=== PATIENT | female | born 1990 | race Caucasian/White ===

== ENCOUNTER 2016-12-29 11:12 | Inpatient (IN) | payer OTHER ==
[2016-12-29] MEDS ORDERED: SODIUM CHLORIDE 0.9% 1,000 ML IV STA (12:27)
--- NOTE | 2016-12-29 12:32 | ED ---
GI Bleed HPI - General Source: patient, RN notes reviewed Mode of arrival: ambulatory Limitations: no limitations <Edmund Pimentel - Last Filed: 12/29/16 15:13> <Lucian Mann - Last Filed: 12/29/16 15:15> - General Chief complaint: GI Bleed Stated complaint: POSS GI BLEED Time Seen by Provider: 12/29/16 12:15 - History of Present Illness Initial comments: 26 year-old female patient presents emergency department today for complaints of rectal bleeding. Patient states that she began having passage of dark red blood with her stool last evening. Patient states she has now had multiple episodes of bright red blood per rectum. Patient denies any history of GI bleed. Patient is complaining of upper abdominal pain. Patient denies any nausea or vomiting. She has had diarrhea since Sunday, multiple episodes per day. Patient denies any shortness of breath, dizziness, weakness, chest pain, back pain. Patient denies any fever or chills. Denies any urinary frequency, urgency, dysuria, or hematuria. Denies any chance of . She does have a lactose ALLERGY and states she generally gets GI upset and diarrhea from this. (Edmund Pimentel) - Related Data Home Medications Medication Instructions Recorded Confirmed Albuterol Inhaler [Ventolin Hfa 1 - 2 puff INHALATION RT-Q6H PRN 12/29/16 Inhaler] Montelukast [Singulair] 10 mg PO DAILY 12/29/16 12/29/16 Norgestimate-Ethinyl Estradiol 1 tab PO DAILY 12/29/16 12/29/16 [Tri-Sprintec Tablet] Allergies Allergy/AdvReac Type Severity Reaction Status Date / Time codeine AdvReac Nausea & Verified 12/29/16 12:11 Vomiting Review of Systems ROS Other: All systems not noted in ROS Statement are negative. <Edmund Pimentel - Last Filed: 12/29/16 15:13> ROS Other: All systems not noted in ROS Statement are negative. <Lucian Mann - Last Filed: 12/29/16 15:15> ROS Statement: Those systems with pertinent positive or pertinent negative responses have been documented in the HPI. Past Medical History Past Medical History: No Reported History History of Any Multi-Drug Resistant Organisms: None Reported Past Surgical History: No Surgical Hx Reported Past Psychological History: No Psychological Hx Reported Smoking Status: Never smoker Past Alcohol Use History: None Reported Past Drug Use History: None Reported <Edmund Pimentel - Last Filed: 12/29/16 15:13> General Exam Limitations: no limitations General appearance: alert, in no apparent distress Eye exam: Present: normal appearance, PERRL, EOMI. Absent: scleral icterus, conjunctival injection, periorbital swelling ENT exam: Present: normal exam, normal oropharynx, mucous membranes moist Neck exam: Present: normal inspection. Absent: tenderness, meningismus, lymphadenopathy Respiratory exam: Present: normal lung sounds bilaterally. Absent: respiratory distress, wheezes, rales, rhonchi, stridor Cardiovascular Exam: Present: regular rate, normal rhythm, normal heart sounds. Absent: systolic murmur, diastolic murmur, rubs, gallop, clicks GI/Abdominal exam: Present: soft, tenderness (Right upper quadrant), normal bowel sounds. Absent: distended, guarding, rebound, rigid Rectal exam: Present: normal inspection, normal rectal tone, heme (+) stool, bloody stool. Absent: hemorrhoids, mass, tenderness Extremities exam: Present: normal inspection, full ROM, normal capillary refill. Absent: tenderness, pedal edema, joint swelling, calf tenderness Back exam: Present: normal inspection. Absent: CVA tenderness (R), CVA tenderness (L) Neurological exam: Present: alert, oriented X3, CN II-XII intact Psychiatric exam: Present: normal affect, normal mood Skin exam: Present: warm, dry, intact, normal color. Absent: rash <Edmund Pimentel - Last Filed: 12/29/16 15:13> General appearance: alert, in no apparent distress Head exam: Present: atraumatic, normocephalic, normal inspection Eye exam: Present: normal appearance, PERRL, EOMI. Absent: scleral icterus, conjunctival injection, periorbital swelling ENT exam: Present: normal exam, mucous membranes moist Neck exam: Present: normal inspection. Absent: tenderness, meningismus, lymphadenopathy Respiratory exam: Present: normal lung sounds bilaterally. Absent: respiratory distress, wheezes, rales, rhonchi, stridor Cardiovascular Exam: Present: regular rate, normal rhythm, normal heart sounds. Absent: systolic murmur, diastolic murmur, rubs, gallop, clicks GI/Abdominal exam: Present: soft, normal bowel sounds. Absent: distended, tenderness, guarding, rebound, rigid Extremities exam: Present: normal inspection, full ROM, normal capillary refill. Absent: tenderness, pedal edema, joint swelling, calf tenderness Back exam: Present: normal inspection Neurological exam: Present: alert, oriented X3, CN II-XII intact Psychiatric exam: Present: normal affect, normal mood Skin exam: Present: warm, dry, intact, normal color. Absent: rash <Lucian Mann - Last Filed: 12/29/16 15:15> Course <Edmund Pimentel - Last Filed: 12/29/16 15:13> <Lucian Mann - Last Filed: 12/29/16 15:15> Vital Signs 12/29/16 12/29/16 11:55 13:34 Temperature 99.1 F 100.2 F H Pulse Rate 117 H 90 Respiratory 18 18 Rate Blood Pressure 121/78 123/85 O2 Sat by Pulse 97 98 Oximetry - Reevaluation(s) Reevaluation #1: 12/29/16 15:[address] Garcia regarding patient, regarding indistinct signs of acute appendicitis as well as diffuse colitis and GI bleed. Patient be admitted for reevaluation, IV antibiotics at this time pain control (Lucian Mann) Medical Decision Making - Lab Data Result diagrams: 12/29/16 13:00 12/29/16 13:00 <Edmund Pimentel - Last Filed: 12/29/16 15:13> - Lab Data Result diagrams: 12/29/16 13:00 12/29/16 13:00 <Lucian Mann - Last Filed: 12/29/16 15:15> - Medical Decision Making in the ER for evaluation of colitis, inflammation and appendix with diffuse abdominal pain. Some is locally right lower quadrant abdominal pain patient was started on antibiotics admitted to surgical surgery service for continued evaluation, will recheck hemoglobin for bleeding (Lucian Mann ) - Lab Data Lab Results 12/29/16 12/29/16 12/29/16 Range/Units 13:00 13:00 13:00 WBC (3.8-10.6) k/uL RBC (3.80-5.40) m/uL Hgb (11.4-16.0) gm/dL Hct (34.0-46.0) % MCV (80.0-100.0) fL MCH (25.0-35.0) pg MCHC (31.0-37.0) g/dL RDW (11.5-15.5) % Plt Count (150-450) k/uL Neutrophils % % Lymphocytes % % Monocytes % % Eosinophils % % Basophils % % Neutrophils # (1.3-7.7) k/uL Lymphocytes # (1.0-4.8) k/uL Monocytes # (0-1.0) k/uL Eosinophils # (0-0.7) k/uL Basophils # (0-0.2) k/uL PT (9.0-12.0) sec INR (<1.1) APTT (22.0-30.0) sec Sodium 139 (137-145) mmol/L Potassium 4.3 (3.5-5.1) mmol/L Chloride 103 (98-107) mmol/L Carbon Dioxide 23 (22-30) mmol/L Anion Gap 13 mmol/L BUN 6 L (7-17) mg/dL Creatinine 0.83 (0.52-1.04) mg/dL Est GFR (MDRD) Af Amer >60 (>60 ml/min/1.73 sqM) Est GFR (MDRD) Non-Af >60 (>60 ml/min/1.73 sqM) Glucose 89 (74-99) mg/dL Calcium 9.2 (8.4-10.2) mg/dL Total Bilirubin 0.7 (0.2-1.3) mg/dL AST 16 (14-36) U/L ALT 20 (9-52) U/L Alkaline Phosphatase 69 (38-126) U/L Total Protein 6.9 (6.3-8.2) g/dL Albumin 3.9 (3.5-5.0) g/dL Amylase 38 (30-110) U/L Lipase 56 (23-300) U/L Urine Color Yellow Urine Appearance Cloudy H (Clear) Urine pH 6.0 (5.0-8.0) Ur Specific Speer 1.026 (1.001-1.035) Urine Protein 1+ H (Negative) Urine Glucose (UA) Negative (Negative) Urine Ketones 4+ H (Negative) Urine Blood Moderate H (Negative) Urine Nitrite Negative (Negative) Urine Bilirubin 1+ H (Negative) Urine Urobilinogen 2.0 (<2.0) mg/dL Ur Leukocyte Esterase Negative (Negative) Urine RBC 1 (0-5) /hpf Urine WBC 7 H (0-5) /hpf Ur Squamous Epith Cells 5 H (0-4) /hpf Hyaline Casts 4 H (0-2) /lpf Urine Mucus Many H (None) /hpf Urine HCG, Qual Not Detected (Not Detectd) Stool Occult Blood (Negative) Blood Type Blood Type Recheck Antibody Screen Spec Expiration Date 12/29/16 12/29/16 12/29/16 Range/Units 13:00 13:00 13:00 WBC 11.6 H (3.8-10.6) k/uL RBC 4.60 (3.80-5.40) m/uL Hgb 13.8 (11.4-16.0) gm/dL Hct 40.5 (34.0-46.0) % MCV 88.1 (80.0-100.0) fL MCH 30.1 (25.0-35.0) pg MCHC 34.2 (31.0-37.0) g/dL RDW 12.6 (11.5-15.5) % Plt Count 258 (150-450) k/uL Neutrophils % 84 % Lymphocytes % 10 % Monocytes % 4 % Eosinophils % 1 % Basophils % 0 % Neutrophils # 9.7 H (1.3-7.7) k/uL Lymphocytes # 1.1 (1.0-4.8) k/uL Monocytes # 0.5 (0-1.0) k/uL Eosinophils # 0.1 (0-0.7) k/uL Basophils # 0.0 (0-0.2) k/uL PT 9.8 (9.0-12.0) sec INR 1.0 (<1.1) APTT 25.1 (22.0-30.0) sec Sodium (137-145) mmol/L Potassium (3.5-5.1) mmol/L Chloride (98-107) mmol/L Carbon Dioxide (22-30) mmol/L Anion Gap mmol/L BUN (7-17) mg/dL Creatinine (0.52-1.04) mg/dL Est GFR (MDRD) Af Amer (>60 ml/min/1.73 sqM) Est GFR (MDRD) Non-Af (>60 ml/min/1.73 sqM) Glucose (74-99) mg/dL Calcium (8.4-10.2) mg/dL Total Bilirubin (0.2-1.3) mg/dL AST (14-36) U/L ALT (9-52) U/L Alkaline Phosphatase (38-126) U/L Total Protein (6.3-8.2) g/dL Albumin (3.5-5.0) g/dL Amylase (30-110) U/L Lipase (23-300) U/L Urine Color Urine Appearance (Clear) Urine pH (5.0-8.0) Ur Specific Speer (1.001-1.035) Urine Protein (Negative) Urine Glucose (UA) (Negative) Urine Ketones (Negative) Urine Blood (Negative) Urine Nitrite (Negative) Urine Bilirubin (Negative) Urine Urobilinogen (<2.0) mg/dL Ur Leukocyte Esterase (Negative) Urine RBC (0-5) /hpf Urine WBC (0-5) /hpf Ur Squamous Epith Cells (0-4) /hpf Hyaline Casts (0-2) /lpf Urine Mucus (None) /hpf Urine HCG, Qual (Not Detectd) Stool Occult Blood (Negative) Blood Type B Positive Blood Type Recheck CABO Indicated Antibody Screen NEGATIVE Spec Expiration Date 01/01/2017 - 229912/29/16 Range/Units 13:00 WBC (3.8-10.6) k/uL RBC (3.80-5.40) m/uL Hgb (11.4-16.0) gm/dL Hct (34.0-46.0) % MCV (80.0-100.0) fL MCH (25.0-35.0) pg MCHC (31.0-37.0) g/dL RDW (11.5-15.5) % Plt Count (150-450) k/uL Neutrophils % % Lymphocytes % % Monocytes % % Eosinophils % % Basophils % % Neutrophils # (1.3-7.7) k/uL Lymphocytes # (1.0-4.8) k/uL Monocytes # (0-1.0) k/uL Eosinophils # (0-0.7) k/uL Basophils # (0-0.2) k/uL PT (9.0-12.0) sec INR (<1.1) APTT (22.0-30.0) sec Sodium (137-145) mmol/L Potassium (3.5-5.1) mmol/L Chloride (98-107) mmol/L Carbon Dioxide (22-30) mmol/L Anion Gap mmol/L BUN (7-17) mg/dL Creatinine (0.52-1.04) mg/dL Est GFR (MDRD) Af Amer (>60 ml/min/1.73 sqM) Est GFR (MDRD) Non-Af (>60 ml/min/1.73 sqM) Glucose (74-99) mg/dL Calcium (8.4-10.2) mg/dL Total Bilirubin (0.2-1.3) mg/dL AST (14-36) U/L ALT (9-52) U/L Alkaline Phosphatase (38-126) U/L Total Protein (6.3-8.2) g/dL Albumin (3.5-5.0) g/dL Amylase (30-110) U/L Lipase (23-300) U/L Urine Color Urine Appearance (Clear) Urine pH (5.0-8.0) Ur Specific Speer (1.001-1.035) Urine Protein (Negative) Urine Glucose (UA) (Negative) Urine Ketones (Negative) Urine Blood (Negative) Urine Nitrite (Negative) Urine Bilirubin (Negative) Urine Urobilinogen (<2.0) mg/dL Ur Leukocyte Esterase (Negative) Urine RBC (0-5) /hpf Urine WBC (0-5) /hpf Ur Squamous Epith Cells (0-4) /hpf Hyaline Casts (0-2) /lpf Urine Mucus (None) /hpf Urine HCG, Qual (Not Detectd) Stool Occult Blood Positive H (Negative) Blood Type Blood Type Recheck Antibody Screen Spec Expiration Date Disposition Time of Disposition: 15:14 <Edmund Pimentel - Last Filed: 12/29/16 15:13> <Lucian Mann - Last Filed: 12/29/16 15:15> Clinical Impression: GI bleed, Colitis, Fever Disposition: ADMITTED IP TO THIS [facility] Condition: Good Referrals: Yolanda Loomis MD [Primary Care Provider] - 1-2 days
[2016-12-29 13:11] LABS: Basophils % (A) 0 %; CH 30.9; CHCM 35.2; Eosinophils # (A) 0.1 k/uL (0-0.7); Eosinophils % (A) 1 %; HCT 40.5 % (34.0-46.0); HDW 2.76; HGB 13.8 gm/dL (11.4-16.0); Luc # (Auto) 0.19; Luc % (Auto) 2; Lymphocytes # (A) 1.1 k/uL (1.0-4.8); Lymphocytes % (A) 10 %; MCH 30.1 pg (25.0-35.0); MCHC 34.2 g/dL (31.0-37.0); MCV 88.1 fL (80.0-100.0); Mean Platelet Volume 7.6; Monocytes # (A) 0.5 k/uL (0-1.0); Monocytes % (A) 4 %; Neutrophils # (A) 9.7 k/uL (1.3-7.7); Neutrophils % (A) 84 %; RDW 12.6 % (11.5-15.5); WBC 11.6 k/uL (3.8-10.6)
[2016-12-29 13:14] LABS: Appearance,Urine Cloudy (Clear); Bilirubin,Urine 1+ (Negative); Glucose,Urine (UA) Negative (Negative); Ketones,Urine 4+ (Negative); Leukocyte Esterase,Urine Negative (Negative); Mucus,Urine Many /hpf; Nitrite,Urine Negative (Negative); Particle Count 16943; Protein,Urine 1+ (Negative); RBC,Urine 1 /hpf (0-5); Specific Gravity,Urine 1.026 (1.001-1.035); Squamous Epithelial Cell,Urine 5 /hpf (0-4); UA Billing (MACRO vs. MICRO) MICRO; WBC,Urine 7 /hpf (0-5)
[2016-12-29 13:20] LABS: Partial Thromboplastin Time 25.1 sec (22.0-30.0); Prothrombin Time 9.8 sec (9.0-12.0)
[2016-12-29 13:22] LABS: ALT 20 U/L (9-52); AST 16 U/L (14-36); Alkaline Phosphatase 69 U/L (38-126); Amylase 38 U/L (30-110); Anion Gap 13 mmol/L; Blood Urea Nitrogen 6 mg/dL (7-17); Calcium 9.2 mg/dL (8.4-10.2); Carbon Dioxide 23 mmol/L (22-30); Chloride 103 mmol/L (98-107); Glucose 89 mg/dL (74-99); Non-African American GFR(MDRD) >60 (>60 ml/min/1.73 sqM); Potassium 4.3 mmol/L (3.5-5.1); Sodium 139 mmol/L (137-145); Total Bilirubin 0.7 mg/dL (0.2-1.3); Total Protein 6.9 g/dL (6.3-8.2)
[2016-12-29] MEDS ORDERED: ACETAMINOPHEN TAB 500 MG TAB PO STA (13:33)
[2016-12-29] MEDS ORDERED: ONDANSETRON 4 MG/2 ML VIAL IVP STA (13:34)
[2016-12-29] MEDS ORDERED: HYDROmorphone 1 MG/ML 1 ML SYRINGE IVP STA (13:34)
[2016-12-29] MEDS ORDERED: RX INFO: IV CONTRAST WAS GIVEN 1 EACH MISC MISCELLANE PRN (13:42)
[2016-12-29] MEDS ORDERED: SODIUM CHLORIDE 0.9% 1,000 ML IV ONE (13:42)
--- NOTE | 2016-12-29 15:00 | CT ---
EXAMINATION TYPE: CT abdomen pelvis w con DATE OF EXAM: 12/29/2016 2:51 PM REFERENCE: NONE HISTORY: Pain HISTORY: Pelvic pain with blood in stool REFERENCE: NONE CT DLP: 680.1 mGy Automated exposure control for dose reduction was used. TECHNIQUE: Helical acquisition through the abdomen and pelvis was obtained following the oral ingesti on of without Oral Contrast and following intravenous administration of 100 mL of Omnipaque 300. The data was reformatted in axial, coronal and sagittal projections. FINDINGS: Visualized portions of the lungs are clear. There is no pleural or pericardial fluid. The heart is not enlarged. Within the abdomen, the liver, spleen and gallbladder are normal. Both adrenal glands are normal. Both kidneys demonstrate function and appear morphologically normal. The pancreas is unremarkable. There is no significant retroperitoneal, iliac or inguinal adenopathy. The bladder is unremarkable. There is a 3.3 cm cyst in the right ovary. There is follicular change in the left ovary. There is no significant diverticular change and there is no radiographic evidence of diverticulitis. There is gross mucosal thickening involving the descending colon and transverse colon. There is some secondary inflammation of the appendix. There is some free fluid within the pelvis. No free air is seen. No bony lesion is identified. IMPRESSION: 1. GROSS COLONIC THICKENING INVOLVING THE ASCENDING COLON AND TRANSVERSE COLON WITH SECONDARY INFLAMM ATION OF THE APPENDIX COMPATIBLE WITH COLITIS. 2. 3.3 CM RIGHT OVARIAN CYST.
[2016-12-29] MEDS ORDERED: NALOXONE 0.4 MG/ML 1 ML VIAL IV PRN (15:13)
[2016-12-29] MEDS ORDERED: ACETAMINOPHEN TAB 325 MG TAB PO PRN (15:13)
[2016-12-29] MEDS ORDERED: AMPICILLIN-SULBACTAM 3 GM in SODIUM CHLORIDE 0.9% 100 ML IVPB STA (15:15)
[2016-12-29] MEDS: SODIUM CHLORIDE 0.9% 1,000 ML IV SCH (15:29)
[2016-12-29 17:37] VITALS: BMI 28.7
[2016-12-29] MEDS: HYDROmorphone 1 MG/ML 1 ML SYRINGE IV PRN ×2 (17:56→21:02)
[2016-12-29] MEDS: PANTOPRAZOLE 40 MG/10 ML VIAL IVP SCH (18:40)
[2016-12-29] MEDS: metroNIDAZOLE-NS PMX 500 MG in SALINE 1 100ML.BAG IVPB SCH (18:47)
[2016-12-29] MEDS: LEVOFLOXACIN 750MG-D5W PMX 750 MG in DEXTROSE/WATER 1 150ML.BAG IVPB SCH (20:09)
[2016-12-29] MEDS: ONDANSETRON 4 MG/2 ML VIAL IVP PRN (22:02)
[2016-12-30] MEDS: metroNIDAZOLE-NS PMX 500 MG in SALINE 1 100ML.BAG IVPB SCH ×3 (00:06→16:05)
[2016-12-30] MEDS: HYDROmorphone 1 MG/ML 1 ML SYRINGE IV PRN ×7 (00:16→21:06)
[2016-12-30] MEDS: SODIUM CHLORIDE 0.9% 1,000 ML IV SCH ×2 (05:26→16:05)
[2016-12-30] MEDS: ONDANSETRON 4 MG/2 ML VIAL IVP PRN ×3 (06:06→22:26)
[2016-12-30] MEDS: PANTOPRAZOLE 40 MG/10 ML VIAL IVP SCH (08:11)
--- NOTE | 2016-12-30 11:58 | P.PN ---
Progress Note - Text The patient states her pain is unchanged. She is tolerating some liquids. She' s had some bloody bowel movements today. On exam her vital signs are stable. Her abdomen soft. There is some tenderness on the right side with radiation pain or back. Right colon and transverse colon colitis. Patient will undergo colonoscopy on Sunday.
--- NOTE | 2016-12-30 11:58 | P.GSHP ---
History of Present Illness H&P Date: 12/29/16 Chief Complaint: Right-sided abdominal pain This is a 26-year-old female who is admitted through the emergency room with complaints of right-sided abdominal pain. Her CAT scan performed shows evidence of right colon inflammation extending towards the hepatic flexure. The patient states that she's had some mucousy bowel movements over the last 3- 4 days. She states he has some pain that radiates to her back. She's never had any GI issues in the past. She denies any family history of inflammatory bowel disease. - Constitutional Constitutional: Reports as per HPI Past Medical History Past Medical History: No Reported History History of Any Multi-Drug Resistant Organisms: None Reported Past Surgical History: No Surgical Hx Reported Past Anesthesia/Blood Transfusion Reactions: No Reported Reaction Past Psychological History: No Psychological Hx Reported Smoking Status: Never smoker Past Alcohol Use History: None Reported Past Drug Use History: None Reported - Past Family History Mother Family Medical History: Hyperlipidemia, Hypertension Father Family Medical History: Hyperlipidemia, Hypertension Medications and Allergies Home Medications Medication Instructions Recorded Confirmed Type Albuterol Inhaler [Ventolin Hfa 1 - 2 puff INHALATION RT-Q6H PRN 12/29/16 History Inhaler] Montelukast [Singulair] 10 mg PO DAILY 12/29/16 12/29/16 History Norgestimate-Ethinyl Estradiol 1 tab PO DAILY 12/29/16 12/29/16 History [Tri-Sprintec Tablet] Allergies Allergy/AdvReac Type Severity Reaction Status Date / Time codeine AdvReac Intermediate Nausea & Verified 12/29/16 17:39 Vomiting Surgical - Exam Vital Signs Temp Pulse Resp BP Pulse Ox 99.1 F 117 H 18 121/78 97 12/29/16 11:55 12/29/16 11:55 12/29/16 11:55 12/29/16 11:55 12/29/16 11:55 - General well developed, no distress - Eyes PERRL - ENT normal pinna - Neck no masses - Respiratory normal expansion - Cardiovascular Rhythm: regular - Abdomen Mild right-sided tenderness. There is no rebound or guarding. Abdomen: soft Results - Labs 12/29/16 13:00 12/29/16 13:00 - Imaging CT scan - pelvis: report reviewed (Gross thickening of the right colon and transverse colon.) Assessment and Plan Plan: Colitis. Patient will start Levaquin and Flagyl. If her symptoms do not improve she'll undergo colonoscopy.
[2016-12-30] MEDS ORDERED: ALBUTEROL NEBULIZED 2.5 MG/3 ML INHALATION PRN (13:30)
[2016-12-30] MEDS: HEPARIN SODIUM,PORCINE 5,000 UNIT/ML 1 ML VIAL SQ SCH ×2 (14:13→21:07)
--- NOTE | 2016-12-30 15:15 | CONS ---
DATE OF CONSULTATION: DATE OF SERVICE: 12/30/2016 REASON FOR CONSULTATION: Advice regarding colitis and other medical issues requested by Dr. Mckeon. HISTORY OF PRESENT ILLNESS: This 26-year-old woman with a past medical history with no significant medical issues except for lactose intolerance being followed by Dr. Yolanda Loomis in the outpatient setting admitted with abdominal pain and diarrhea. Pain was mostly on the right side of abdomen as well as the upper part of the abdomen. The patient came to [facility] and a had a CAT scan of the abdomen which showed gross colonic thickening involving the ascending colon and the transverse colon with secondary inflammation of the appendix was compatible with colitis also noted. A 3.3 cm ovarian cyst was also noted. Colonoscopy is being planned at this time. There is no history of any headache, loss of consciousness or seizures. No history of chest pain or palpitations at this time. PAST MEDICAL HISTORY: History of lactose intolerance. Medications are: 1. Norgestimate ethinyl estradiol. 2. Singulair 10 mg p.o. daily. 3. Ventolin HFA 1 to 2 puffs q.6 p.r.n. Allergies are CODEINE. FAMILY HISTORY: History of hypertension and hyperlipidemia in the family. SOCIAL HISTORY: No history of smoking. No history of alcohol intake. REVIEW OF SYSTEMS: ENT: No diminishing hearing. No diminished vision. CARDIOVASCULAR: No angina or palpitations. RESPIRATORY: No cough or hemoptysis. GI: As mentioned earlier. : No dysuria. NERVOUS SYSTEM: No numbness or weakness. ALLERGY/IMMUNOLOGY: No asthma or hayfever. MUSCULOSKELETAL: As mentioned earlier. HEMATOLOGY/ONCOLOGY: No history of anemia. ENDOCRINE: No history of diabetes or hypothyroidism. CONSTITUTIONAL: As mentioned earlier. DERMATOLOGY: Negative. RHEUMATOLOGY: Negative. PSYCHIATRY: As mentioned earlier. PHYSICAL EXAMINATION: Patient is alert and oriented x3. Pulse is 96, blood pressure 107/73, respirations 17, temperature 97.8, pulse ox 99% on room air. HEENT: Conjunctivae normal. NECK: No jugular venous distention. CARDIOVASCULAR: S1 and S2, muffled. No murmurs, no thrills. RESPIRATORY: Breath sounds diminished at the bases. No rhonchi, no crackles. ABDOMEN: Soft. Mild diffuse tenderness especially in the right upper abdomen present. No guarding. No rigidity. No mass palpable. Bowel sounds diminished, otherwise, no ascites. LEGS: No edema, no swelling. NERVOUS SYSTEM: Higher function as mentioned. Moves all 4 limbs. No focal motor or sensory deficits. LYMPHATICS: No lymphadenopathy of neck, axillae or groin. SKIN: No ulcer, rash or bleeding. LABS: WBC 11.6, hemoglobin 13.8. UA 4+ ketones, 7 WBCs. ASSESSMENT: 1. Diffuse abdominal pain, rule out possibly acute colitis. 2. History of lactose intolerance. 3. Rule out urinary tract infection. 4. Increased WBC secondary to colitis. RECOMMENDATIONS AND DISCUSSION: In this 26-year-old woman who presented with multiple complex medical issues, we will monitor the patient closely. Continue the current medications. Continue symptomatic treatment. I recommend empiric antibiotics for colitis and also DVT prophylaxis and proton pump inhibitors. Surgery is planning colonoscopy. Will continue to monitor. Also recommend urine culture also to complete the workup. Otherwise, we will follow the patient closely with you. Patient may be asked to follow with Dr. Yolanda Loomis closely after discharge. Thank you Dr. Mckeon for letting us participate in the care of this patient. GISEL
[2016-12-30] MEDS: LEVOFLOXACIN 750MG-D5W PMX 750 MG in DEXTROSE/WATER 1 150ML.BAG IVPB SCH (18:02)
[2016-12-31] MEDS: metroNIDAZOLE-NS PMX 500 MG in SALINE 1 100ML.BAG IVPB SCH ×3 (00:03→15:46)
[2016-12-31] MEDS: HYDROmorphone 1 MG/ML 1 ML SYRINGE IV PRN ×3 (02:08→11:37)
[2016-12-31] MEDS: SODIUM CHLORIDE 0.9% 1,000 ML IV SCH ×3 (06:00→23:30)
[2016-12-31 07:59] LABS: Basophils % (A) 0 %; CH 30.6; CHCM 34.4; Eosinophils # (A) 0.1 k/uL (0-0.7); Eosinophils % (A) 1 %; HCT 34.5 % (34.0-46.0); HDW 2.86; HGB 11.7 gm/dL (11.4-16.0); Luc # (Auto) 0.22; Luc % (Auto) 3; Lymphocytes # (A) 0.9 k/uL (1.0-4.8); Lymphocytes % (A) 12 %; MCH 30.3 pg (25.0-35.0); MCHC 33.9 g/dL (31.0-37.0); MCV 89.2 fL (80.0-100.0); Mean Platelet Volume 7.6; Monocytes # (A) 0.4 k/uL (0-1.0); Monocytes % (A) 5 %; Neutrophils % (A) 79 %; RBC 3.86 m/uL (3.80-5.40); RDW 12.7 % (11.5-15.5); WBC 7.6 k/uL (3.8-10.6); WBC (Perox) 8.53
[2016-12-31] MEDS: PANTOPRAZOLE 40 MG/10 ML VIAL IVP SCH (08:03)
[2016-12-31] MEDS: ONDANSETRON 4 MG/2 ML VIAL IVP PRN ×2 (08:03→15:46)
[2016-12-31] MEDS: MONTELUKAST 10 MG TAB PO SCH (08:05)
[2016-12-31] MEDS: HEPARIN SODIUM,PORCINE 5,000 UNIT/ML 1 ML VIAL SQ SCH ×2 (08:05→21:27)
[2016-12-31] MEDS ORDERED: PEG 3350-NA SULF,BICARB,CL/KCL 4,000 ML BOTTLE PO ONE (10:16)
--- NOTE | 2016-12-31 10:20 | P.PN ---
Progress Note - Text The patient states she feels that a better. Her pain has improved. On exam her vital signs are stable. Her abdomen soft. There is decreased tenderness in the right side. Patient will undergo colonoscopy in the a.m. She'll start her bowel prep today.
--- NOTE | 2016-12-31 16:38 | PN ---
DATE OF SERVICE: 12/31/2016 This 26 -year-old woman who was admitted with diffuse abdominal pain, with possible acute colitis is on antibiotics and as well as pain medications. Colonoscopy is tentatively scheduled for tomorrow. Cultures are negative. No chest pain. No palpitations. No fever. On exam, alert and oriented x3. Pulse is 100. Blood pressure is 119/70, respirations 18, temperature 99.1. Pulse ox 97% on room air. HEENT: Conjunctivae normal. NECK: No jugular venous distention. CARDIOVASCULAR: S1, S2 muffled. RESPIRATORY: Breath sounds diminished at the bases. No rhonchi. No crackles. ABDOMEN: Soft. Mild diffuse discomfort on palpation. Tenderness present. Otherwise, no guarding. No ascites. Bowel sounds present. LEGS: No edema. No swelling. CENTRAL NERVOUS SYSTEM: No focal deficits. LABS: CBC within normal limits. BMP noted. UA noted. ASSESSMENT: 1. Diffuse abdominal pain, possible acute colitis. 2. History of lactose intolerance rule out urinary tract infection. 3. Increased white count secondary to colitis. RECOMMENDATIONS AND DISCUSSION: In this 26 -year-old woman who presented with multiple complex medical issues, we will monitor the patient closely. Continue the current medications. Continue symptomatic treatment. Otherwise, at this time, I would recommend continue with antibiotics. Possible bronchoscopy. Guarded prognosis. Further recommendations to follow.
[2016-12-31] MEDS: LEVOFLOXACIN 750MG-D5W PMX 750 MG in DEXTROSE/WATER 1 150ML.BAG IVPB SCH (17:59)
[2017-01-01] MEDS: metroNIDAZOLE-NS PMX 500 MG in SALINE 1 100ML.BAG IVPB SCH ×3 (00:17→19:42)
[2017-01-01] MEDS: HEPARIN SODIUM,PORCINE 5,000 UNIT/ML 1 ML VIAL SQ SCH ×2 (08:32→20:58)
[2017-01-01] MEDS: MONTELUKAST 10 MG TAB PO SCH ×2 (08:33→20:58)
[2017-01-01] MEDS: PANTOPRAZOLE 40 MG/10 ML VIAL IVP SCH (08:33)
[2017-01-01] MEDS ORDERED: IV FLUID CONTINUATION 1,000 ML IV ONE (11:34)
[2017-01-01] MEDS ORDERED: PROPOFOL 10 MG/ML 20 ML VIAL IV ONE (11:43)
[2017-01-01] MEDS ORDERED: SODIUM CHLORIDE 0.9% 1,000 ML IV ONE (11:46)
--- NOTE | 2017-01-01 11:59 | P.OP ---
Date of Procedure: 01/01/17 Preoperative Diagnosis: Colitis Postoperative Diagnosis: Diverticulosis Right colon inflammation biopsy pending Procedure(s) Performed: Colonoscopy Anesthesia: MAC Surgeon: Cristóbal Mckeon Pathology: other (Right colon) Condition: stable Disposition: PACU Description of Procedure: The patient's placed on the endoscopy table in the lateral position. She received IV sedation. Digital rectal exam was performed which revealed no abnormalities. The flexible pediatric colonoscope was then placed the patient' s anus and passed throughout the entire colon. The ileocecal valve sutures. The right colon was obviously inflamed and had evidence of colitis. There were patchy weight infiltrates seen on the mucosa. This area is biopsied. The scope was withdrawn and the colon appeared to improve in the proximal transverse colon. The descending colon had diverticular changes. In the sigmoid colon there is extensive diverticular changes. The scope was then brought back the rectum and this appeared normal. There was no blood seen in the colon. The scope was withdrawn for patient.
--- NOTE | 2017-01-01 14:06 | P.PN ---
Progress Note - Text The patient had her colonoscopy performed today. She is evidence of right- sided colitis. Her biopsies are pending. The patient's diet will be advanced to regular food. She'll hopefully discharge home tomorrow.
[2017-01-01] MEDS: LEVOFLOXACIN 750MG-D5W PMX 750 MG in DEXTROSE/WATER 1 150ML.BAG IVPB SCH (18:04)
--- NOTE | 2017-01-01 18:57 | PN ---
DATE OF SERVICE: 01/01/2017 This 26-year-old woman who was admitted with diffuse abdominal features of colitis had a colonoscopy showed right sided colitis by Dr. Mckeon. Biopsies pending at this time. No chest pain. No palpitations. The patient is feeling much better. On exam, alert and oriented times three. Pulse 89, blood pressure 119/75, respiratory rate 16, temperature 98.9. Pulse ox 100% on room air. HEENT: Conjunctivae normal. NECK: No jugular venous distention. CARDIOVASCULAR: S1, S2 muffled. ABDOMEN: Soft, nontender. No mass palpable. Legs: No edema. No swelling. Nervous system: No focal deficits. LABS: WBC is 7.6. ASSESSMENT: 1. Diffuse abdominal pain, acute colitis, status post colonoscopy awaiting biopsy report. 2. History of lactose intolerance. 3. Rule out urinary tract infection. 4. Increased WBC secondary to colitis. RECOMMENDATIONS AND DISCUSSION: In this 26 -year-old woman who presented with multiple complex medical issues, we will continue the current medications. Continue symptomatic treatment. I recommend continue with antibiotics. Otherwise, continue to monitor and follow closely with surgery. Further recommendations to follow.
[2017-01-01] MEDS: SODIUM CHLORIDE 0.9% 1,000 ML IV SCH (20:55)
[2017-01-02] MEDS: metroNIDAZOLE-NS PMX 500 MG in SALINE 1 100ML.BAG IVPB SCH ×2 (01:34→09:55)
[2017-01-02] MEDS: HEPARIN SODIUM,PORCINE 5,000 UNIT/ML 1 ML VIAL SQ SCH (08:33)
[2017-01-02] MEDS: PANTOPRAZOLE 40 MG/10 ML VIAL IVP SCH (08:33)
--- NOTE | 2017-01-02 13:12 | P.DS ---
Providers Date of admission: 01/01/17 14:12 Expected date of discharge: 01/02/17 Attending physician: Cristóbal Mckeon Primary care physician: Yolanda Loomis [facility] Course: This a 26-year-old female who presented to the emergency room with complaints of right-sided abdominal pain. She is worked up found have evidence of right- sided colitis. Patient underwent colonoscopy. Patient's pain and rectal bleeding improved during her auscultation. Please gastrectomy for details. Procedures: Colonoscopy Patient Condition at Discharge: Good Plan - Discharge Summary Discharge Medication List Albuterol Inhaler [Ventolin Hfa Inhaler] 1 - 2 puff INHALATION [id number] PRN [History] Montelukast [Singulair] 10 mg PO DAILY 12/29/16 [History] Norgestimate-Ethinyl Estradiol [Tri-Sprintec Tablet] 1 tab PO DAILY 12/29/16 [ History] Follow up Appointment(s)/Referral(s): Yolanda Loomis MD [Primary Care Provider] - 1-2 days Cristóbal Mckeon MD [STAFF PHYSICIAN] - 01/09/17 2:30 pm () Patient Instructions/Handouts: Diverticulitis (DC) Activity/Diet/Wound Care/Special Instructions: Continue low residue diet as tolerated. Activity as tolerated. Notify provider of any concerns such as pain that is not tolerated with medication, fever, nausea and vomiting, or any other concerns.
[2017-01-02] MEDS: MONTELUKAST 10 MG TAB PO SCH (13:41)
[2017-01-02 14:43] VITALS: BP 126/80; PULSE 102; RESP 17; TEMP 98
--- NOTE | 2017-01-02 16:50 | PN ---
DATE OF SERVICE: 01/02/2017 This 26 -year-old woman who was admitted with diffuse abdominal pain and features of colitis had a colonoscopy. Biopsies pending at this time. Colonoscopy showed right-sided colitis. No chest pain. No palpitations. No fever. On exam, alert and oriented times three. Pulse rate 95, blood pressure ntd respiratory rate 18, temperature 98.4. Pulse ox is 97% on room air. HEENT: Conjunctivae normal. NECK: No jugular venous distention. CARDIOVASCULAR: S1, S2 muffled. No S3, no S4. RESPIRATORY: Breath sounds diminished at the bases. No rhonchi, no crackles. ABDOMEN: Soft, nontender. No mass palpable. Legs: No edema, no swelling. Nervous system: No focal deficits. Labs are CBC within normal limits. ASSESSMENT: 1. Diffuse abdominal pain, possible acute colitis, status post colonoscopy, awaiting biopsy report. 2. History of lactose intolerance. 3. Increased white blood cell count secondary to colitis. 4. No evidence of urinary tract infection. RECOMMENDATIONS AND DISCUSSION: In this 26 -year-old woman who presented with abdominal pain and features of colitis. Patient improved significantly. I recommend to follow up with Dr. Yolanda Loomis closely in the outpatient setting and continue symptomatic treatment. Rest of the recommendation per surgery. Further recommendations to follow. MTDD
== END 2017-01-02 14:26 | disposition home or self-care (01) | DRG 392 ==
LOC: EC 11:12 → 6PED 15:14 → OBSVTOIN 01-01 14:12
PROVIDERS: ADMIT Surgery; ATTEND Surgery
PROC: 0DBF8ZX Excision of Right Large Intestine, Via Natural or Artificial Opening Endoscopic, Diagnostic (ICD-10-PCS; principal; 2017-01-01 08:45)
DX: K52.9 Noninfective gastroenteritis and colitis, unspecified (principal); E73.9 Lactose intolerance, unspecified; K57.30 Diverticulosis of large intestine without perforation or abscess without bleeding; N83.209 Unspecified ovarian cyst, unspecified side; Z79.899 Other long term (current) drug therapy
CPT/HCPCS: 36415; 45380; 74177; 80053; 81001; 81025; 82150; 82272; 83690; 85025; 85610; 85730; 86850; 86900; 86901; 87086; 87324; 88305; 96361; 96366; 96367; 96372; 96374; 96375; 96376; 99285

== ENCOUNTER → 2020-09-22 | Outpatient (CLI) | payer OTHER ==
[2020-09-22 16:48] LABS: Basophils # (A) 0.1 k/uL (0-0.2); Basophils % (A) 1 %; Eosinophils # (A) 0.1 k/uL (0-0.7); Eosinophils % (A) 1 %; HCT 43.7 % (34.0-46.0); HGB 14.2 gm/dL (11.4-16.0); Lymphocytes # (A) 2.4 k/uL (1.0-4.8); Lymphocytes % (A) 26 %; MCH 30.1 pg (25.0-35.0); MCHC 32.6 g/dL (31.0-37.0); MCV 92.3 fL (80.0-100.0); Mean Platelet Volume 8.2; Monocytes # (A) 0.3 k/uL (0-1.0); Monocytes % (A) 4 %; Neutrophils % (A) 67 %; Platelet Count 290 k/uL (150-450); RBC 4.73 m/uL (3.80-5.40); RDW 12.4 % (11.5-15.5)
[2020-09-23 00:23] LABS: Immunoglobulin E 3.7 IU/mL (0.00-114.00)
== END | disposition home or self-care (01) ==
LOC: LABWHC1 16:16
PROVIDERS: ATTEND Allergy & Immunology
DX: R19.7 Diarrhea, unspecified (principal)
CPT/HCPCS: 36415; 82784; 82785; 85025

== ENCOUNTER → 2023-05-11 | Outpatient (CLI) | payer OTHER ==
[2023-05-11 13:15] LABS: Basophils # (A) 0.07 X 10*3/uL (0.00-0.10); Basophils % (A) 0.9 %; Eosinophils # (A) 0.15 X 10*3/uL (0.04-0.35); HCT 43.4 % (37.2-46.3); HGB 14.5 d/dL (12.0-15.0); Lymphocytes # (A) 1.99 X 10*3/uL (0.90-5.00); Lymphocytes % (A) 26.5 %; MCH 31.2 pg (27.0-32.0); MCHC 33.4 d/dL (32.0-37.0); MCV 93.3 FL (80.0-97.0); Monocytes # (A) 0.52 X 10*3/uL (0.20-1.00); Monocytes % (A) 6.9 %; NRBC Per 100 WBC 0 X 10*3/uL (0.00-0.01); Neutrophils # (A) 4.64 X 10*3/uL (1.80-7.70); Neutrophils % (A) 61.8 %; Platelet Count 255 X 10*3/uL (140-440); RBC 4.65 X 10*6/uL (4.10-5.20); RDW 12.6 % (11.5-14.5); WBC 7.51 X 10*3/uL (4.50-10.00)
[2023-05-11 14:24] LABS: % Iron Saturation 22.12 (12.00-45.00); ALT 18 U/L (8-44); AST 19 U/L (13-35); Albumin 4.3 d/dL (3.8-4.9); Albumin/Globulin Ratio 1.48 Ratio (1.60-3.17); Alkaline Phosphatase 74 U/L (41-126); Blood Urea Nitrogen 10.4 mg/dL (9.0-27.0); Calcium 9.3 mg/dL (8.7-10.3); Carbon Dioxide 20.2 mmol/L (21.6-31.8); Chloride 105 mmol/L (96-109); Chol/HDL Ratio 3.73 Ratio; Globulin 2.9 d/dL (1.6-3.3); Glucose 90 mg/dL (70-110); Iron 73 UG/DL (50-170); LDL Cholesterol,Calculated 112.2 mg/dL (0.0-131.0); Potassium 4.4 mmol/L (3.5-5.5); Sodium 138 mmol/L (135-145); Total Bilirubin <0.2 mg/dL (0.3-1.2); Total Iron Binding Capacity 330 UG/DL (228-460); Total Protein 7.2 d/dL (6.2-8.2)
[2023-05-11 15:26] LABS: Estradiol 37.6 pg/mL
[2023-05-11 15:42] LABS: Follicle Stimulating Hormone 6.6 mIU/mL; Luteinizing Hormone 6.4 mIU/mL
== END | disposition home or self-care (01) ==
LOC: LABWHC1 07:07
PROVIDERS: ATTEND Family Medicine
DX: Z13.21 Encounter for screening for nutritional disorder (principal); Z13.220 Encounter for screening for lipoid disorders; Z13.29 Encounter for screening for other suspected endocrine disorder; N92.6 Irregular menstruation, unspecified; R23.3 Spontaneous ecchymoses
CPT/HCPCS: 36415; 80053; 80061; 82306; 82607; 82670; 82728; 83001; 83002; 83540; 83550; 84443; 85025

== ENCOUNTER → 2023-10-09 | Outpatient (CLI) | payer OTHER ==
--- NOTE | 2023-10-09 09:15 | XR ---
EXAMINATION TYPE: XR chest 2V DATE OF EXAM: 10/09/2023 COMPARISON: None HISTORY: 33-year-old female R06.02 SOB R60.0 Localized edema TECHNIQUE: Frontal and lateral views FINDINGS: The cardiomediastinal silhouette, aorta, and pulmonary vasculature are within normal limits. Lungs an d pleural spaces are clear. IMPRESSION: No acute cardiopulmonary process.
[2023-10-09 10:47] LABS: Basophils # (A) 0.03 X 10*3/uL (0.00-0.10); Basophils % (A) 0.4 %; Eosinophils # (A) 0.04 X 10*3/uL (0.04-0.35); Eosinophils % (A) 0.5 %; HCT 42.7 % (37.2-46.3); HGB 14.6 g/dL (12.0-15.0); Lymphocytes # (A) 1.56 X 10*3/uL (0.90-5.00); Lymphocytes % (A) 19.3 %; MCH 30.4 pg (27.0-32.0); MCHC 34.2 g/dL (32.0-37.0); Mean Platelet Volume 11.4 FL (9.5-12.2); Monocytes # (A) 0.48 X 10*3/uL (0.20-1.00); Monocytes % (A) 5.9 %; NRBC Per 100 WBC 0 X 10*3/uL (0.00-0.01); Neutrophils # (A) 5.94 X 10*3/uL (1.80-7.70); Neutrophils % (A) 73.4 %; Platelet Count 289 X 10*3/uL (140-440); RDW 12.4 % (11.5-14.5); WBC 8.09 X 10*3/uL (4.50-10.00)
[2023-10-09 11:14] LABS: ALT 15 U/L (8-44); AST 16 U/L (13-35); Albumin 4.6 g/dL (3.8-4.9); Albumin/Globulin Ratio 1.48 Ratio (1.60-3.17); Alkaline Phosphatase 70 U/L (41-126); BUN/Creat Ratio 11.33 Ratio (12.00-20.00); Blood Urea Nitrogen 10.2 mg/dL (9.0-27.0); C Reactive Protein <0.30 mg/dL (0.00-0.80); Calcium 9.6 mg/dL (8.7-10.3); Carbon Dioxide 22.9 mmol/L (21.6-31.8); Chloride 103 mmol/L (96-109); Chol/HDL Ratio 3.82 Ratio; Globulin 3.1 g/dL (1.6-3.3); Glucose 94 mg/dL (70-110); LDL Cholesterol,Calculated 107.2 mg/dL (0.0-131.0); Potassium 4.3 mmol/L (3.5-5.5); Rheumatoid Factor, Qnt <15 IU/mL (0-15); Sodium 138 mmol/L (135-145); Total Bilirubin 0.5 mg/dL (0.3-1.2); Total Protein 7.7 g/dL (6.2-8.2)
[2023-10-09 11:48] LABS: Hepatitis A Antibody IgM Nonreactive; Hepatitis B Core IgM Nonreactive; Hepatitis B Surface Antigen Nonreactive; Hepatitis C IgG Antibody Nonreactive
[2023-10-09 12:25] LABS: Erythrocyte Sedimentation Rate 23 mm/Hr (0-20)
== END | disposition home or self-care (01) ==
LOC: RADXRMAIN 07:03
PROVIDERS: ATTEND Family Medicine
DX: R06.02 Shortness of breath (principal); R60.0 Localized edema
CPT/HCPCS: 36415; 71046; 80053; 80061; 80074; 84443; 85025; 85652; 86038; 86140; 86160; 86431